=== PATIENT | male | born 2000 | race Caucasian/White ===

== ENCOUNTER 2019-02-14 16:47 | Emergency (ER) | payer SELFPAY ==
[~2019-02-14] VITALS: Ht 172.7 cm; Wt 118.0 kg
[~2019-02-14 16:47] MED LIST: DOCU-144 PO; IBUP-1542 PO
[2019-02-14 17:19] VITALS: BP 156/79; PULSE 74; RESP 18; Ht 172.7 cm; Wt 118.0 kg
== END 2019-02-14 19:48 | disposition home or self-care (01) ==
LOC: FTE 16:47
DX: K62.81 Anal sphincter tear (healed) (nontraumatic) (old) (principal)
CPT/HCPCS: 99284